=== PATIENT | female | born 1990 | race Caucasian/White ===

== ENCOUNTER 2023-08-11 01:27 | Day surgery (SDC) | payer BC, OTHER, SELFPAY ==
--- NOTE | 2023-07-31 15:17 | PC.NURSE ---
Report to the Outpatient Waiting Room, entrance under the green pavilion located off [facility], at time 0730 on date 08/11/23. Planned Procedure Time: 0730. Time changes happen often and if your time is changed the preop area will call you the afternoon before. - You and your visitor will be asked to self-screen and do not enter if you have any COVID symptoms. - A mask is optional within the hospital at this time. Patients may have clear liquids (water, carbonated beverages, clear teas, apple juice) until 3 hours prior to surgery with a maximum of 20 ounces. 0630 - No food from midnight until time of surgery - Infants may have breast milk until 4 hours before surgery, formula 6 hours prior to surgery. - Children will be allowed to drink immediately following surgery. If applicable, please bring a bottle or sippy cup to assist with drinking. Juice, water, soda, and popsicles are readily available. For infants on formula, please bring formula the day of surgery. Pacifiers are allowed. Take the following medications with a SIP of water the morning of surgery: None DO NOT STOP ANY OF YOUR OTHER PRESCRIPTION MEDICATIONS PRIOR TO SURGERY ?EXCEPT THE FOLLOWING Medications to discontinue per physician N/A Date to take last dose N/A Please no make-up, nail nepali, hairspray, perfume, deodorant, or body powder the day of surgery. No jewelry (including any body piercings) or valuables the day of surgery, leave them at home. Please take a shower or bath the night before, or the morning of, surgery with an antibacterial soap. Wear comfortable, loose fitting clothing. Children are encouraged to wear pajamas. - Jewelry must be removed prior to entering the operating room. Rings and piercings that are not removed may be cut off. - The hospital will not accept responsibility for valuables. - Please leave all valuables, including medications, at home the day of surgery. If you are going home after surgery, a licensed experienced truck driver must drive you home. - NO public transportation without another adult if you receive anesthesia. - We recommend that an adult stay with you for 24 hours following discharge. - We also recommend that you do not drive, make important decision, drink alcoholic beverages, or take any drugs that were not prescribed by your health care provider for at least 24 hours after your discharge time. For Pediatric surgeries, we recommend two adults accompany the child home. Follow any additional instructions given to you from your surgeon. If you or anyone in your household have experienced Covid symptoms in the past week, please notify your surgeon or the nurse liaison at the phone number below for possible testing. Telephone instructions given to Patient- Deb Motley and asked if any additional questions and then verbalized understanding. Patient advised to call surgeon office or pre surgery nurse liaison [phone] if any additional questions.
[2023-07-31 16:08] VITALS: BMI 32.1
[2023-08-11] VITALS (8 sets, daily range): BP systolic 113–143; BP diastolic 65–89; PULSE 61–91; RESP 14–18; TEMP 36.1–37.3; O2SAT 100; BMI 32.0
--- NOTE | 2023-08-11 07:53 | P.PNAN_ITS ---
Anes - Initial Pre Proc Eval Procedure: Operation Date: 08/11/23 09:30 Proposed Procedures p Diagnostic Laparoscopy Bilateral Salpingectomy - Anisha Sweeney DO Date/Time: 08/11/23 07:53 Surgeon: Anisha Sweeney DO Pre Op Diagnosis: Desire Surgical Sterility Patient Data Age: 33 Gender: F Height: 1.8 m Weight: 104.5 kg Allergies Allergy/AdvReac Type Severity Reaction Status Date / Time No Known Allergies Allergy Verified 07/31/23 15:10 Home Medications Medication Instructions Recorded Confirmed Type No Home Medications 07/31/23 07/31/23 History Patient hx anesthesia problems: none Family hx anesthesia problems: none Results Review: All pre-operative results and documents have been reviewed as part of the pre- operative evaluation. PMFSH Past Medical History Medical History (Updated 08/11/23 @ 07:54 by Elliott Guillaume MD) Overweight Surgical History Surgical History (Updated 08/11/23 @ 07:54 by Elliott Guillaume MD) H/O arthroscopic knee surgery Hx of tonsillectomy Social History Social History Smoking status: Never smoker Spiritual care concerns: No Anes - Eval Final PreProcedure Day of Procedure 08/11/23 07:53 Patient weight: overweight Heart: regular rate and rhythm Lungs: clear to auscultation Airway: Mallampati scale class II Neurological: alert and oriented Last oral intake: >/= 8 hours ASA classification: II Emergent: no Anesthetic plan: proceed Anesthesia type and monitoring: general ETT and standard monitoring Results Review: All pre-operative results and documents have been reviewed as part of the pre- operative evaluation. Informed Consent: The patient's anesthetic plan and its attendant risks and benefits were discussed with the patient/family/POA. Questions were solicited and answers provided to the satisfaction of the patient/family/POA.
[2023-08-11] MEDS: LACTATED RINGERS 1,000 ML 30 ML IV CONT (08:10)
[2023-08-11] MEDS: SCOPOLAMINE 1.5 MG PATCH TRANSDERM (08:22)
[2023-08-11] MEDS: ACETAMINOPHEN 500 MG TABLET 1000 MG PO (08:22)
[2023-08-11] MEDS: GABAPENTIN 300 MG CAPSULE PO (08:22)
--- NOTE | 2023-08-11 08:49 | PM.IMHP ---
H&P: HPI History of Present Illness Date/Time: 08/11/23 08:49 Chief Complaint: I'm here for my surgery Narrative: Deb presents for diagnostic laparoscopy, bilateral salpingectomy desiring permanent sterilization. Review of Systems Review of Systems: All systems reviewed & are unremarkable except as noted in HPI and below PMFSH Past Medical History Medical History (Updated 08/11/23 @ 08:52 by Anisha Sweeney DO) Overweight Surgical History Surgical History (Updated 08/11/23 @ 07:54 by Elliott Guillaume MD) H/O arthroscopic knee surgery Hx of tonsillectomy Social History Social History Smoking status: Never smoker Spiritual care concerns: No Meds Home Medications and Allergies Home Medications Medication Instructions Recorded Confirmed Type No Home Medications 07/31/23 07/31/23 History Allergies Allergy/AdvReac Type Severity Reaction Status Date / Time No Known Allergies Allergy Verified 08/11/23 07:59 Vital Signs Vital Signs - 24 hr 08/11/23 07:18 Temperature 37.3 C Pulse Rate 76 Respiratory Rate 14 Blood Pressure 140/84 Pulse Oximetry 100 Oxygen Delivery Room Air Exam Const: General: comfortable and no acute distress Eyes: General: appearance normal, both eyes and all related structures Resp: Effort & Inspection: normal respiratory effort Auscultation: clear to auscultation bilaterally Cardio: Rate: regular rate Rhythm: regular rhythm GI: GI Palp: Yes Soft to palpation Auscultation: normal bowel sounds Skin: General skin exam: normal color and no rashes or lesions noted Psych: Mental Status: mental status grossly normal Affect: normal affect Assessment and Plan Assessment and plan (1) Sterilization: Code(s): Z30.2 - Encounter for sterilization Status: Acute Plan Diagnostic laparoscopy, bilateral salpingectomy
--- NOTE | 2023-08-11 08:52 | WPDHPUPDATE1 ---
History and Physical Update Update Date/Time: 08/11/23 08:52 History and Physical has been reviewed, including an updated exam of the patient. There are NO changes in the patient's condition. Risks, benefits, and alternatives have been discussed and questions answered. Patient agrees to proceed with procedure.
[2023-08-11] MEDS: KETOROLAC 30 MG/ML VIAL (*BKC) IV PUSH (09:31)
[2023-08-11] MEDS: BUPivacaine HCL 0.25% PF 30 ML VIAL 10 ML INFILTRATE (09:32)
--- NOTE | 2023-08-11 09:52 | P.OP_ITS ---
Procedure Note - Detailed Date of Procedure 08/11/23 Pre-op Diagnosis Desire Surgical Sterility Post-op Diagnosis Same Procedure Performed Diagnostic laparoscopy, bilateral salpingectomy, removal of IUD. Surgeon Anisha Sweeney, DO Anesthesia General Indications Desires permanent sterilization Findings Normal appearing vulva and vaginal canal. Large cervix. Uterus sounded to 8.5 cm. Normal liver and intestines. Normal uterus, although slightly enlarged. Normal tubes and ovaries. Description of Procedure Patient was taken to the operating room where she was placed under general anesthesia. She was prepped and draped in the normal sterile fashion in the dorsal lithotomy position. No preoperative antibiotics were indicated. After a time-out was performed, speculum was placed in the vagina and the posterior lip of the cervix was grasped with an Allis clamp. The strings of the IUD were seen and were grasped with a ring forceps. IUD was removed intact and was not sent for pathology. The cervix was dilated to accommodate a disposable uterine manipulator. The uterus was sounded to 8.5 cm. Once the manipulator was placed, the Allis and speculum were removed. Gloves were changed and attention was then turned to the abdomen. The skin below the umbilicus was injected with local and a small incision was made. A Veress needle was introduced and the saline water drop test was performed. The abdomen was then brought to a filling pressure of 15 mmHg. the Veress needle was then replaced with a 5 mm Optiview trocar which was inserted under direct visualization. Survey of the abdomen revealed no evidence of bowel or vascular injury upon entry. Patient was then placed in steep Trendelenburg position. Additional port sites in the right and left lower quadrants were identified, injected and incised. 5 mm trocars were introduced under direct visualization. Surveyed the abdomen and pelvis revealed the above-mentioned findings. On the right side the tube was elevated and was cauterized and transected off. It was passed off through the certified surgical assistant port. The procedure was repeated in identical fashion on the left-hand side. Once the specimens were removed, the pedicles were reinspected and found to be hemostatic. The instruments and trocars removed and the CO2 gas was allowed to escape. The abdominal incisions were closed with subcuticular 4-0 Monocryl. The uterine man ipulator was removed. Patient was taken to the recovery room in stable condition. All instrument and sponge counts were correct at the conclusion of the procedure. Estimated Blood Loss 5 IV Fluids 800 Drains No Packing No Pathology Yes Complications No immediate complications Condition Stable Disposition PACU
[2023-08-11] MEDS: oxyCODONE HCL (*CRX) 5 MG TAB IR PO (11:38)
== END 2023-08-11 11:52 | disposition home or self-care (01) ==
PROVIDERS: PCP Family Medicine Sports Medicine; Visit Provider Obstetrics & Gynecology Gynecologic Oncology
PROC: (CPT 49320; principal; 2023-08-11 09:30)
DX: Z30.2 Encounter for sterilization (principal); Z30.432 Encounter for removal of intrauterine contraceptive device; N83.8 Other noninflammatory disorders of ovary, fallopian tube and broad ligament
CPT/HCPCS: 58661; 58301; 88302; A9270; J1885; J2250; J3010; J7030; J7120